=== PATIENT | male | born 1995 | race Caucasian/White ===

== ENCOUNTER 2017-12-23 18:34 | Emergency (ER) | payer SELFPAY ==
--- NOTE | 2017-12-23 19:57 | RAD ---
FRONTAL AND LATERAL IMAGING CHEST 12/23/17 COMPARISON: 11/07/17 HISTORY: Trouble breathing. FINDINGS: Lungs are clear. Heart and mediastinal contours are unremarkable. IMPRESSION: No acute findings. POS: [facility]
[2017-12-23] MEDS ORDERED: Famotidine 20 MG TAB ONE (20:26)
[2017-12-23] MEDS ORDERED: diphenhydrAMINE 50 MG CAP ONE (20:26)
[2017-12-23] MEDS ORDERED: Dexamethasone 4 MG TAB ONE (20:26)
[2017-12-23] MEDS ORDERED: ALPRAZolam 0.25 MG TAB ONE (21:33)
== END 2017-12-23 21:38 | disposition home or self-care (01) ==
LOC: ERS 18:34
DX: R06.02 Shortness of breath (principal); F41.9 Anxiety disorder, unspecified; J45.909 Unspecified asthma, uncomplicated
CPT/HCPCS: 71046; J8540

== ENCOUNTER 2018-03-06 10:26 | Emergency (ER) | payer SELFPAY ==
--- NOTE | 2018-03-06 11:08 | RAD ---
RIGHT LEG TWO VIEWS: History: Right leg pain. FINDINGS/IMPRESSION: The right tibia and fibula are intact. POS: OFF
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
[2018-03-06] MEDS ORDERED: Bacitracin Zinc 1 Packet ONE (13:02)
== END 2018-03-06 13:23 | disposition home or self-care (01) ==
LOC: ERS 10:26
DX: S93.401A Sprain of unspecified ligament of right ankle, initial encounter (principal); S60.211A Contusion of right wrist, initial encounter; S80.212A Abrasion, left knee, initial encounter; S80.211A Abrasion, right knee, initial encounter; S90.411A Abrasion, right great toe, initial encounter; J45.909 Unspecified asthma, uncomplicated; F41.9 Anxiety disorder, unspecified; V86.56XA Driver of dirt bike or motor/cross bike injured in nontraffic accident, initial encounter
CPT/HCPCS: 29125